=== PATIENT | male | born 1985 | race Caucasian/White ===

== ENCOUNTER 2024-06-24 11:59 | Emergency (ER) | payer BC ==
[~2024-06-24] VITALS: Ht 180.3 cm; Wt 89.9 kg
[2024-06-24 12:03] VITALS: BP 151/90; PULSE 77; RESP 16; O2SAT 96
[2024-06-24] MEDS: TETanus/Pertussis (Acell)/Diphther VAC/PF (Tdap-Adult) 0.5ml syringe IMVAC ONE (14:12)
== END 2024-06-24 14:40 | disposition home or self-care (01) ==
LOC: ER 12:01
DX: S61.210A Laceration without foreign body of right index finger without damage to nail, initial encounter (principal); X58.XXXA Exposure to other specified factors, initial encounter; Y93.89 Activity, other specified; Y92.89 Other specified places as the place of occurrence of the external cause; Y99.8 Other external cause status
CPT/HCPCS: 12001; 90471; 90715; 99283; A6449